=== PATIENT | female | born 1930 | race Caucasian/White ===

== ENCOUNTER 2016-12-12 15:59 | Inpatient (IN) | payer OTHER ==
--- NOTE | 2016-12-12 18:48 | PDOC ---
History of Present Illness - General History Source: Patient, Family (Daughter ) Exam Limitations: No Limitations - History of Present Illness Initial Comments: 12/12/16 19:27 The patient is an 86 year old female, with a significant past medical history of stage II breast CA and urinary incontinence, who presents to the emergency department with right lower extremity redness, swelling and pain for the past 3 days but worsening today. Three days ago, the patient states that she noticed her right lower extremity had started to become swollen. However, it was not until today that she noticed her right lower extremity had become red and inflamed. She called her daughter to bring her to her PCPs office, but she came to the ED for evaluation instead. The patient denies fever or chills. The patients daughter is at the bedside. Allergies: Sulfa. Past Surgical History: Cholecystectomy. Social History: Former smoker. Denies alcohol or drug use. PCP: Dr. Toro <Lizeth Elias - Last Filed: 12/12/16 22:31> <Tammy Ray - Last Filed: 12/13/16 01:49> - General Chief Complaint: Edema Stated Complaint: LEG PAIN Time Seen by Provider: 12/12/16 18:31 Past History <Lizeth Elias - Last Filed: 12/12/16 22:31> - Past Medical History Cancer: Yes (LT BREAST) Other medical history: URINARY INCONTENANCE - Surgical History Cholecystectomy: Yes - Psycho/Social/Smoking Cessation Hx Anxiety: No Suicidal Ideation: No Smoking History: Former smoker Have you smoked in the past 12 months: No Information on smoking cessation initiated: No Hx Alcohol Use: No Drug/Substance Use Hx: No Substance Use Type: None <Tammy Ray - Last Filed: 12/13/16 01:49> - Past Medical History Allergies/Adverse Reactions: Allergies Allergy/AdvReac Type Severity Reaction Status Date / Time Sulfa (Sulfonamide Allergy Verified 12/12/16 19:43 Antibiotics) Home Medications: Ambulatory Orders Aspirin 81 mg PO DAILY 06/17/15 B12/Levomefolate Calcium/B-6 [Folbic Rf Tablet] 1 each PO DAILY tablet Folic Acid 0.4 mg PO DAILY tablet 06/17/15 Furosemide 20 mg PO DAILY tablet 06/17/15 Meclizine HCl 25 mg PO Q6H PRN tablet 06/17/15 Multivit-Min/FA/Lycopen/Lutein [Centrum Silver Tablet] 1 tab PO DAILY tablet Omeprazole/Sodium Bicarbonate [Omeprazole-Bicarb 20-1,100 Cap] 1 each PO DAILY capsule 06/17/15 Mirabegron [Myrbetriq] 1 tab PO DAILY 12/12/16 Tolterodine Tartrate LA [Detrol LA -] 1 tab PO DAILY 12/12/16 Review of Systems - Review of Systems Able to Perform ROS?: Yes Comments:: 12/12/16 19:08 GENERAL/CONSTITUTIONAL: No fever or chills. No weakness. HEAD, EYES, EARS, NOSE AND THROAT: No change in vision. No ear pain or discharge. No sore throat. CARDIOVASCULAR: No chest pain or shortness of breath. RESPIRATORY: No cough, wheezing, or hemoptysis. GASTROINTESTINAL: No nausea, vomiting, diarrhea or constipation. GENITOURINARY: No dysuria, frequency, or change in urination. MUSCULOSKELETAL: No joint or muscle swelling or pain. No neck or back pain. EXTREMITY: +Right lower extremity redness, swelling and pain. SKIN: No rash. NEUROLOGIC: No headache, vertigo, loss of consciousness, or change in strength/ sensation. ENDOCRINE: No increased thirst. No abnormal weight change. HEMATOLOGIC/LYMPHATIC: No anemia, easy bleeding, or history of blood clots. ALLERGIC/IMMUNOLOGIC: No hives or skin allergy. <Lizeth Elias - Last Filed: 12/12/16 22:31> *Physical Exam - Vital Signs Last Vital Signs Temp Pulse Resp BP Pulse Ox 98.0 F 109 H 18 136/63 98 12/12/16 16:19 12/12/16 16:19 12/12/16 16:19 12/12/16 16:19 12/12/16 16:19 - Physical Exam Comments: 12/12/16 19:18 GENERAL: Awake, alert, and fully oriented, in no acute distress. HEAD: No signs of trauma. EYES: PERRLA, EOMI, sclera anicteric, conjunctiva clear. ENT: Hard of hearing. Auricles normal inspection, nares patent, oropharynx clear without exudates. Moist mucosa. NECK: Normal ROM, supple, no lymphadenopathy, JVD, or masses. LUNGS: Breath sounds equal, clear to auscultation bilaterally. No wheezes, and no crackles. HEART: Regular rate and rhythm, normal S1 and S2, no murmurs, rubs or gallops. ABDOMEN: Soft, nontender, normoactive bowel sounds. No guarding, no rebound. No masses. EXTREMITIES: 2+ pitting edema of the right lower extremity to the knee which is erythematous with multiple open lesions weeping clear fluid. Normal range of motion. No clubbing or cyanosis. No cords. NEUROLOGICAL: Cranial nerves II through XII intact. Normal speech, gait deferred. SKIN: Warm, dry, normal turgor. <Lizeth Elias - Last Filed: 12/12/16 22:31> - Vital Signs Last Vital Signs Temp Pulse Resp BP Pulse Ox 98.0 F 109 H 18 136/63 98 12/12/16 16:19 12/12/16 16:19 12/12/16 16:19 12/12/16 16:19 12/12/16 16:19 <Tammy Ray - Last Filed: 12/13/16 01:49> ED Treatment Course - LABORATORY CBC & Chemistry Diagram: 12/12/16 19:25 12/12/16 19:25 <Lizeth lEias - Last Filed: 12/12/16 22:31> - LABORATORY CBC & Chemistry Diagram: 12/12/16 19:25 12/12/16 21:30 <Tammy Ray - Last Filed: 12/13/16 01:49> Medical Decision Making - Medical Decision Making 12/12/16 20:09 EXAM: US/DUPLEX VASCUL US-1 LEG Reviewed By: Dr. Brian Mahmood IMPRESSION: No DVT is identified involving the right leg. Note is made of a prominent approximately 6.3 x 2.5 x 2 cm popliteal cyst. Case discussed with Dr. Tobar at 21:54. <Lizeth Elias - Last Filed: 12/12/16 22:31> - Medical Decision Making Case d/w Dr. Tobar, will admit for cellulitis RLE. DVT study is negative. I consulted with Dr. Chavis as per Dr. Tobar. <Tammy Ray - Last Filed: 12/13/16 01:49> *DC/Admit/Observation/Transfer - Attestations Scribe Attestion: 12/12/16 19:06 Documentation prepared by Lizeth Elias, acting as medical aide for Tammy Ray MD. <Lizeth Elias - Last Filed: 12/12/16 22:31> - Discharge Dispostion Admit: Yes <Tammy Ray - Last Filed: 12/13/16 01:49> Diagnosis at time of Disposition: Cellulitis Qualifiers: Site of cellulitis: extremity Site of cellulitis of extremity: lower extremity Laterality: right Qualified Code(s): L03.115 - Cellulitis of right lower limb - Discharge Dispostion Condition at time of disposition: Stable - Referrals
[2016-12-12] MEDS ORDERED: CLINDAMYCIN 600MG PREMIX IVPB 50 ML IVPB ONE ×2 (18:54→19:32)
[2016-12-12 19:38] LABS: MCH 33.2 pg (25.7-33.7); MCHC 33.1 g/dl (32.0-36.0); MEAN CELL VOLUME 100.2 fl (80-96); MEAN PLT VOLUME 8.3 fl (7.5-11.1); PLATELET COUNT 235 K/MM3 (134-434); RDW 16.2 % (11.6-15.6)
[2016-12-12 21:38] LABS: HYPOCHROMIA 1+; PLATELET ESTIMATE ADEQUATE (NORMAL)
[2016-12-12] MEDS: PIPERACILLIN/TAZOB 3.375 GM 3.375 GM in DEXTROSE 5%-WATER - 50 ML IVPB ONE ×2 (21:53→22:09)
[2016-12-12] MEDS ORDERED: PIPERACILLIN IVPB ONE (21:54)
[2016-12-12] MEDS ORDERED: TAZOB IVPB ONE (21:54)
--- NOTE | 2016-12-12 22:04 | CONSULT ---
Consult Consult Specialty:: infectious diseases Reason for Consultation:: cellulitis rt leg - History of Present Illness Chief Complaint: cellulitis of the leg History of Present Illness: 86 year old female, with a significant past medical history of stage II breast CA and urinary incontinence, who presents to the emergency department with right lower extremity redness, swelling and pain for the past 3 days but worsening today. Three days ago, the patient states that she noticed her right lower extremity had started to become swollen. However, it was not until today that she noticed her right lower extremity had become red and inflamed patient says she had to come to the hospital because he was bothering her - History Source History Provided By: Patient, Family Member Limitations to Obtaining History: No Limitations - Alcohol/Substance Use Hx Alcohol Use: No - Smoking History Smoking history: Former smoker Have you smoked in the past 12 months: No Home Medications - Allergies Allergies/Adverse Reactions: Allergies Allergy/AdvReac Type Severity Reaction Status Date / Time Sulfa (Sulfonamide Allergy Verified 12/12/16 19:43 Antibiotics) - Home Medications Home Medications: Ambulatory Orders Aspirin 81 mg PO DAILY 06/17/15 Folic Acid 0.4 mg PO DAILY tablet 06/17/15 Furosemide 20 mg PO DAILY tablet 06/17/15 Meclizine HCl 25 mg PO TID tablet 06/17/15 Tolterodine Tartrate LA [Detrol LA -] 4 mg PO DAILY 12/12/16 Cyanocobalamin [Vitamin B12 -] 1,000 mcg PO DAILY 12/13/16 Multivitamins [Tab-A-Vit -] 1 tab PO DAILY 12/13/16 Review of Systems - Review of Systems Constitutional: reports: No Symptoms Eyes: reports: No Symptoms HENT: reports: No Symptoms Neck: reports: No Symptoms Cardiovascular: reports: No Symptoms Respiratory: reports: No Symptoms Gastrointestinal: reports: No Symptoms Genitourinary: reports: No Symptoms Integumentary: reports: Erythema, Other Neurological: reports: No Symptoms, Weakness Hematology/Lymphatic: reports: No Symptoms Psychiatric: reports: No Symptoms Physical Exam Vital Signs: Vital Signs Temperature 98.0 F 12/12/16 16:19 Pulse Rate 109 H 12/12/16 16:19 Respiratory Rate 18 12/12/16 16:19 Blood Pressure 136/63 12/12/16 16:19 O2 Sat by Pulse Oximetry (%) 98 12/12/16 16:19 Constitutional: Yes: Calm, Mild Distress Eyes: Yes: Conjunctiva Clear HENT: Yes: Atraumatic Neck: Yes: Supple, Trachea Midline Cardiovascular: Yes: Regular Rate and Rhythm Respiratory: Yes: Regular, CTA Bilaterally Gastrointestinal: Yes: Normal Bowel Sounds, Soft Musculoskeletal: Yes: Muscle Pain, Other Extremities: Yes: Erythema (rt leg) Integumentary: Yes: Erythema, Other Neurological: Yes: Alert, Oriented Psychiatric: Yes: Alert, Oriented Labs: CBC, BMP 12/12/16 19:25 Imaging - Results Chest X-ray: Report Reviewed, Image Reviewed Ultrasound: Report Reviewed, Image Reviewed Assessment/Plan - Problems (1) Cellulitis Code(s): L03.90 - CELLULITIS, UNSPECIFIED Qualifiers: Site of cellulitis: extremity Site of cellulitis of extremity: lower extremity Laterality: right Qualified Code(s): L03.115 - Cellulitis of right lower limb plan will start patient on zosyn await for cx reports monitor redness if increases will add abx
[2016-12-12] MEDS ORDERED: PIPERACILLIN/TAZOB 4.5 GM 100 ML IVPB ONE (22:06)
[2016-12-12] MEDS ORDERED: PIPERACILLIN/TAZOB 3.375 GM 3.375 GM in DEXTROSE 5%-WATER - 50 ML IVPB SCH (22:15)
[2016-12-12 22:34] LABS: ALBUMIN 2.4 g/dl (3.4-5.0); BILIRUBIN,TOTAL 0.3 mg/dL (0.2-1.0); CALCIUM 8.1 mg/dL (8.5-10.1); COCKROFT - GAULT 51.5355; TOT PROT 5.9 g/dl (6.4-8.2)
--- NOTE | 2016-12-12 23:30 | HP ---
Admitting History and Physical - Primary Care Physician PCP: Marii Tobar - Admission History of Present Illness: 86 year old female, with a significant past medical history of stage II breast CA and urinary incontinence, who presents to the emergency department with right lower extremity redness, swelling and pain for the past 3 days but worsening today. Three days ago, the patient states that she noticed her right lower extremity had started to become swollen. However, it was not until today that she noticed her right lower extremity had become red and inflamed. She called her daughter to bring her to her PCPs office, but she came to the ED for evaluation instead. - Past Medical History Heme/Onc: Yes: Other (br ca) - Smoking History Smoking history: Former smoker Have you smoked in the past 12 months: No - Alcohol/Substance Use Hx Alcohol Use: No Home Medications - Allergies Allergies/Adverse Reactions: Allergies Allergy/AdvReac Type Severity Reaction Status Date / Time Sulfa (Sulfonamide Allergy Verified 12/12/16 19:43 Antibiotics) - Home Medications Home Medications: Ambulatory Orders Aspirin 81 mg PO DAILY 06/17/15 Folic Acid 0.4 mg PO DAILY tablet 06/17/15 Furosemide 20 mg PO DAILY tablet 06/17/15 Meclizine HCl 25 mg PO TID tablet 06/17/15 Tolterodine Tartrate LA [Detrol LA -] 4 mg PO DAILY 12/12/16 Cyanocobalamin [Vitamin B12 -] 1,000 mcg PO DAILY 12/13/16 Multivitamins [Tab-A-Vit -] 1 tab PO DAILY 12/13/16 Physical Examination Vital Signs: Vital Signs Temperature 98.0 F 12/12/16 16:19 Pulse Rate 109 H 12/12/16 16:19 Respiratory Rate 18 12/12/16 16:19 Blood Pressure 136/63 12/12/16 16:19 O2 Sat by Pulse Oximetry (%) 98 12/12/16 16:19 Constitutional: Yes: No Distress HENT: Yes: Atraumatic Neck: Yes: Supple Cardiovascular: Yes: Regular Rate and Rhythm Respiratory: Yes: CTA Bilaterally Gastrointestinal: Yes: Normal Bowel Sounds Extremities: Yes: Other (rlex swollen , red and warm) Neurological: Yes: Alert, Oriented Imaging - Results Ultrasound: Report Reviewed Problem List - Problems (1) Cellulitis Assessment/Plan: admit iv abx dvt negative prn pain meds Code(s): L03.90 - CELLULITIS, UNSPECIFIED Qualifiers: Site of cellulitis: extremity Site of cellulitis of extremity: lower extremity Laterality: right Qualified Code(s): L03.115 - Cellulitis of right lower limb Assessment/Plan Laboratory Tests 12/12/16 12/12/16 12/12/16 19:25 19:25 21:30 WBC 10.0 RBC 3.03 L Hgb 10.0 L Hct 30.3 L MCV 100.2 H MCHC 33.1 RDW 16.2 H Plt Count 235 MPV 8.3 Neutrophils % 78.0 Lymphocytes % 15.0 Monocytes % 7.0 Platelet Estimate Adequate Hypochromic-Microcytic 1+ Macrocytosis 1+ Sodium Cancelled 141 Potassium Cancelled 3.5 Chloride Cancelled 104 Carbon Dioxide Cancelled 26 Anion Gap Cancelled 11 BUN Cancelled 17 Creatinine Cancelled 1.0 Creat Clearance w eGFR Cancelled 52.69 Random Glucose Cancelled 121 H Calcium Cancelled 8.1 L Total Bilirubin Cancelled 0.3 AST Cancelled 21 ALT Cancelled 21 Alkaline Phosphatase Cancelled 151 H Total Protein Cancelled 5.9 L Albumin Cancelled 2.4 L Active Medications Generic Name Dose Route Start Last Admin Trade Name Freq PRN Reason Stop Dose Admin Aspirin 81 mg 12/13/16 10:00 Asa - PO DAILY [facility] Furosemide 20 mg 12/13/16 10:00 Lasix - PO DAILY [facility] Piperacillin Sod/Tazobactam Sod 50 mls @ 100 mls/hr 12/12/16 22:55 Zosyn 3.375gm Ivpb (Pre-Docked) IVPB Q8H-IV [facility] Protocol Tolterodine Tartrate mg 12/13/16 10:00 Detrol La - PO DAILY [facility]
[2016-12-13] MEDS ORDERED: PIPERACILLIN/TAZOB 3.375 GM 50 ML IVPB ONE (02:23)
[2016-12-13] MEDS: PIPERACILLIN/TAZOB 3.375 GM 50 ML IVPB SCH ×3 (03:05→21:19)
[2016-12-13 09:51] LABS: ALBUMIN 2.6 g/dl (3.4-5.0); BILIRUBIN,TOTAL 0.6 mg/dL (0.2-1.0); CALCIUM 8.6 mg/dL (8.5-10.1); COCKROFT - GAULT 51.5355; TOT PROT 6.5 g/dl (6.4-8.2)
[2016-12-13] MEDS: TOLTERODINE TARTRATE LA 4 MG CAP.SR.24H (FP) PO SCH (10:30)
[2016-12-13] MEDS: ASPIRIN 81 MG CHEWABLE TABLETS PO SCH (10:30)
[2016-12-13] MEDS: FUROSEMIDE 20 MG TABLET (FP) PO SCH (10:31)
[2016-12-13 12:11] LABS: EOSINOPHIL 0.1 % (0-4.5)
[2016-12-13 12:29] LABS: BASOPHIL 1.1 % (0-2.0); MCH 32.7 pg (25.7-33.7); MCHC 32.4 g/dl (32.0-36.0); MEAN PLT VOLUME 8.4 fl (7.5-11.1); NEUTROPHILS 77.9 % (42.8-82.8); PLATELET COUNT 243 K/MM3 (134-434); RDW 15.8 % (11.6-15.6); WHITE BLOOD COUNT 11.8 K/mm3 (4.0-10.0)
[2016-12-13 17:20] VITALS: BMI 29.7
--- NOTE | 2016-12-13 19:02 | PN ---
Progress Note, Physician History of Present Illness: no complaints - Current Medication List Current Medications: Active Medications Aspirin (Asa -) 81 mg PO DAILY [facility] Last Admin: 12/13/16 10:30 Dose: Not Given Furosemide (Lasix -) 20 mg PO DAILY [facility] Last Admin: 12/13/16 10:31 Dose: Not Given Piperacillin Sod/Tazobactam Sod (Zosyn 3.375gm Ivpb (Pre-Docked)) 50 mls @ 100 mls/hr IVPB Q8H-IV [facility] PRN Reason: Protocol Last Admin: 12/13/16 11:00 Dose: 100 mls/hr Tolterodine Tartrate (Detrol La -) 4 mg PO DAILY [facility] Last Admin: 12/13/16 10:30 Dose: Not Given - Objective Vital Signs: Vital Signs Temperature 98.1 F 12/13/16 15:19 Pulse Rate 99 H 12/13/16 15:19 Respiratory Rate 20 12/13/16 15:19 Blood Pressure 122/70 12/13/16 15:19 O2 Sat by Pulse Oximetry (%) 98 12/12/16 16:19 Constitutional: Yes: No Distress HENT: Yes: Atraumatic Neck: Yes: Supple Cardiovascular: Yes: Regular Rate and Rhythm Respiratory: Yes: CTA Bilaterally Gastrointestinal: Yes: Normal Bowel Sounds Extremities: Yes: Other (cellulitis) Edema: Yes Edema: RLE: 1+ Neurological: Yes: Alert, Oriented Labs: CBC, BMP 12/13/16 06:15 12/13/16 06:15 Problem List - Problems (1) Cellulitis Assessment/Plan: admit iv abx dvt negative prn pain meds Code(s): L03.90 - CELLULITIS, UNSPECIFIED Qualifiers: Site of cellulitis: extremity Site of cellulitis of extremity: lower extremity Laterality: right Qualified Code(s): L03.115 - Cellulitis of right lower limb
[2016-12-13] MEDS: FOLIC ACID 1 MG TABLET (FP) PO SCH (21:20)
[2016-12-13] MEDS: CYANOCOBALAMIN 1,000 MCG TABLET (FP) PO SCH (21:20)
--- NOTE | 2016-12-13 23:43 | PN ---
Progress Note, Physician History of Present Illness: patient swelling less erythema less still erythema - Current Medication List Current Medications: Active Medications Aspirin (Asa -) 81 mg PO DAILY [facility] Last Admin: 12/13/16 10:30 Dose: Not Given Cyanocobalamin (Vitamin B12 -) 1,000 mcg PO DAILY [facility] Last Admin: 12/13/16 21:20 Dose: 1,000 mcg Folic Acid (Folic Acid -) 0.5 mg PO DAILY [facility] Last Admin: 12/13/16 21:20 Dose: 0.5 mg Furosemide (Lasix -) 20 mg PO DAILY [facility] Last Admin: 12/13/16 10:31 Dose: Not Given Piperacillin Sod/Tazobactam Sod (Zosyn 3.375gm Ivpb (Pre-Docked)) 50 mls @ 100 mls/hr IVPB Q8H-IV [facility] PRN Reason: Protocol Last Admin: 12/13/16 21:19 Dose: 100 mls/hr Tolterodine Tartrate (Detrol La -) 4 mg PO DAILY [facility] Last Admin: 12/13/16 10:30 Dose: Not Given - Objective Vital Signs: Vital Signs Temperature 97.4 F L 12/13/16 16:20 Pulse Rate 95 H 12/13/16 16:20 Respiratory Rate 20 12/13/16 16:20 Blood Pressure 139/66 12/13/16 16:20 O2 Sat by Pulse Oximetry (%) 100 12/13/16 18:00 Constitutional: Yes: No Distress, Calm Cardiovascular: Yes: Regular Rate and Rhythm Respiratory: Yes: Regular, CTA Bilaterally Gastrointestinal: Yes: Normal Bowel Sounds, Soft Musculoskeletal: Yes: Other Extremities: Yes: Erythema (resolving) Edema: RLE: 1+ Integumentary: Yes: Erythema Neurological: Yes: Alert, Oriented Psychiatric: Yes: Alert Labs: CBC, BMP 12/13/16 06:15 12/13/16 06:15 Assessment/Plan - Problems (1) Cellulitis Code(s): L03.90 - CELLULITIS, UNSPECIFIED Qualifiers: Site of cellulitis: extremity Site of cellulitis of extremity: lower extremity Laterality: right Qualified Code(s): L03.115 - Cellulitis of right lower limb plan conitnue abx cx report noted elevation of legs monitor swelling
[2016-12-14] MEDS: PIPERACILLIN/TAZOB 3.375 GM 50 ML IVPB SCH ×3 (01:30→18:43)
[2016-12-14] MEDS: CYANOCOBALAMIN 1,000 MCG TABLET (FP) PO SCH (10:52)
[2016-12-14] MEDS: TOLTERODINE TARTRATE LA 4 MG CAP.SR.24H (FP) PO SCH (10:52)
[2016-12-14] MEDS: FUROSEMIDE 20 MG TABLET (FP) PO SCH (10:53)
[2016-12-14] MEDS: ASPIRIN 81 MG CHEWABLE TABLETS PO SCH (10:53)
[2016-12-14] MEDS: FOLIC ACID 1 MG TABLET (FP) PO SCH (10:53)
--- NOTE | 2016-12-14 12:45 | PN ---
Progress Note, Physician History of Present Illness: swelling and erythema still present slightly less still ongoing though patient feeling better - Current Medication List Current Medications: Active Medications Aspirin (Asa -) 81 mg PO DAILY [facility] Last Admin: 12/14/16 10:53 Dose: 81 mg Cyanocobalamin (Vitamin B12 -) 1,000 mcg PO DAILY [facility] Last Admin: 12/14/16 10:52 Dose: 1,000 mcg Folic Acid (Folic Acid -) 0.5 mg PO DAILY [facility] Last Admin: 12/14/16 10:53 Dose: 0.5 mg Furosemide (Lasix -) 20 mg PO DAILY [facility] Last Admin: 12/14/16 10:53 Dose: 20 mg Piperacillin Sod/Tazobactam Sod (Zosyn 3.375gm Ivpb (Pre-Docked)) 50 mls @ 100 mls/hr IVPB Q8H-IV [facility] PRN Reason: Protocol Last Admin: 12/14/16 10:53 Dose: 100 mls/hr Tolterodine Tartrate (Detrol La -) 4 mg PO DAILY [facility] Last Admin: 12/14/16 10:52 Dose: 4 mg - Objective Vital Signs: Vital Signs Temperature 98.4 F 12/14/16 06:22 Pulse Rate 98 H 12/14/16 06:22 Respiratory Rate 20 12/14/16 06:22 Blood Pressure 132/79 12/14/16 06:22 O2 Sat by Pulse Oximetry (%) 95 12/13/16 21:00 Constitutional: Yes: No Distress, Calm Cardiovascular: Yes: Regular Rate and Rhythm Respiratory: Yes: Regular, CTA Bilaterally Gastrointestinal: Yes: Normal Bowel Sounds, Soft Musculoskeletal: Yes: WNL Extremities: Yes: Erythema (better) Integumentary: Yes: Erythema (improving) Neurological: Yes: Alert, Oriented Psychiatric: Yes: Alert Labs: CBC, BMP 12/13/16 06:15 12/13/16 06:15 Assessment/Plan - Problems (1) Cellulitis Code(s): L03.90 - CELLULITIS, UNSPECIFIED Qualifiers: Site of cellulitis: extremity Site of cellulitis of extremity: lower extremity Laterality: right Qualified Code(s): L03.115 - Cellulitis of right lower limb plan conitnue abx elevation of legs if no improveemnt tomorrow will add clinda
--- NOTE | 2016-12-14 19:28 | PN ---
Progress Note, Physician History of Present Illness: no complaints - Current Medication List Current Medications: Active Medications Aspirin (Asa -) 81 mg PO DAILY [facility] Last Admin: 12/14/16 10:53 Dose: 81 mg Cyanocobalamin (Vitamin B12 -) 1,000 mcg PO DAILY [facility] Last Admin: 12/14/16 10:52 Dose: 1,000 mcg Folic Acid (Folic Acid -) 0.5 mg PO DAILY [facility] Last Admin: 12/14/16 10:53 Dose: 0.5 mg Furosemide (Lasix -) 20 mg PO DAILY [facility] Last Admin: 12/14/16 10:53 Dose: 20 mg Piperacillin Sod/Tazobactam Sod (Zosyn 3.375gm Ivpb (Pre-Docked)) 50 mls @ 100 mls/hr IVPB Q8H-IV [facility] PRN Reason: Protocol Last Admin: 12/14/16 18:43 Dose: 100 mls/hr Tolterodine Tartrate (Detrol La -) 4 mg PO DAILY [facility] Last Admin: 12/14/16 10:52 Dose: 4 mg - Objective Vital Signs: Vital Signs Temperature 97.9 F 12/14/16 14:40 Pulse Rate 78 12/14/16 14:40 Respiratory Rate 16 12/14/16 14:40 Blood Pressure 130/78 12/14/16 14:40 O2 Sat by Pulse Oximetry (%) 95 12/13/16 21:00 Constitutional: Yes: No Distress HENT: Yes: Atraumatic Neck: Yes: Supple Cardiovascular: Yes: Regular Rate and Rhythm Respiratory: Yes: CTA Bilaterally Gastrointestinal: Yes: Normal Bowel Sounds Extremities: Yes: Other (rlex cellulitis improving) Neurological: Yes: Alert, Oriented Labs: CBC, BMP 12/13/16 06:15 12/13/16 06:15 Problem List - Problems (1) Cellulitis Assessment/Plan: admit iv abx dvt negative prn pain meds NEED TO KNOW FROM ID IF WE CAN SWITCH HER TO ORAL AND DC HER Code(s): L03.90 - CELLULITIS, UNSPECIFIED Qualifiers: Site of cellulitis: extremity Site of cellulitis of extremity: lower extremity Laterality: right Qualified Code(s): L03.115 - Cellulitis of right lower limb
[2016-12-15] MEDS: PIPERACILLIN/TAZOB 3.375 GM 50 ML IVPB SCH ×3 (01:30→17:46)
[2016-12-15] MEDS: CYANOCOBALAMIN 1,000 MCG TABLET (FP) PO SCH (09:38)
[2016-12-15] MEDS: FOLIC ACID 1 MG TABLET (FP) PO SCH (09:39)
[2016-12-15] MEDS: ASPIRIN 81 MG CHEWABLE TABLETS PO SCH (09:39)
[2016-12-15] MEDS: TOLTERODINE TARTRATE LA 4 MG CAP.SR.24H (FP) PO SCH (09:39)
[2016-12-15] MEDS: FUROSEMIDE 20 MG TABLET (FP) PO SCH (09:39)
--- NOTE | 2016-12-15 13:29 | PN ---
Progress Note, Physician History of Present Illness: patient stable leg still red but improving - Current Medication List Current Medications: Active Medications Aspirin (Asa -) 81 mg PO DAILY [facility] Last Admin: 12/15/16 09:39 Dose: 81 mg Cyanocobalamin (Vitamin B12 -) 1,000 mcg PO DAILY [facility] Last Admin: 12/15/16 09:38 Dose: 1,000 mcg Folic Acid (Folic Acid -) 0.5 mg PO DAILY [facility] Last Admin: 12/15/16 09:39 Dose: 0.5 mg Furosemide (Lasix -) 20 mg PO DAILY [facility] Last Admin: 12/15/16 09:39 Dose: 20 mg Piperacillin Sod/Tazobactam Sod (Zosyn 3.375gm Ivpb (Pre-Docked)) 50 mls @ 100 mls/hr IVPB Q8H-IV [facility] PRN Reason: Protocol Last Admin: 12/15/16 09:47 Dose: 100 mls/hr Tolterodine Tartrate (Detrol La -) 4 mg PO DAILY [facility] Last Admin: 12/15/16 09:39 Dose: 4 mg - Objective Vital Signs: Vital Signs Temperature 97.7 F 12/15/16 08:41 Pulse Rate 86 12/15/16 08:41 Respiratory Rate 16 12/15/16 08:41 Blood Pressure 137/76 12/15/16 08:41 O2 Sat by Pulse Oximetry (%) 97 12/14/16 21:00 Constitutional: Yes: No Distress, Calm Cardiovascular: Yes: Regular Rate and Rhythm Respiratory: Yes: Regular, CTA Bilaterally Gastrointestinal: Yes: Normal Bowel Sounds, Soft Musculoskeletal: Yes: Other Extremities: Yes: Erythema Integumentary: Yes: Erythema Wound/Incision: Yes: Clean/Dry Neurological: Yes: Alert, Oriented Psychiatric: Yes: Alert, Oriented Labs: CBC, BMP 12/13/16 06:15 12/13/16 06:15 Assessment/Plan - Problems (1) Cellulitis Code(s): L03.90 - CELLULITIS, UNSPECIFIED Qualifiers: Site of cellulitis: extremity Site of cellulitis of extremity: lower extremity Laterality: right Qualified Code(s): L03.115 - Cellulitis of right lower limb plan conitnue abx elevation of legs will add oral clinda rest ct as per primary
[2016-12-15] MEDS: CLINDAMYCIN HCL 150 MG CAPSULE (FP) PO SCH (17:46)
--- NOTE | 2016-12-15 18:23 | PN ---
Progress Note, Physician History of Present Illness: no complaints - Current Medication List Current Medications: Active Medications Aspirin (Asa -) 81 mg PO DAILY [facility] Last Admin: 12/15/16 09:39 Dose: 81 mg Clindamycin HCl (Cleocin -) 300 mg PO Q6HPO [facility] Last Admin: 12/15/16 17:46 Dose: 300 mg Cyanocobalamin (Vitamin B12 -) 1,000 mcg PO DAILY [facility] Last Admin: 12/15/16 09:38 Dose: 1,000 mcg Folic Acid (Folic Acid -) 0.5 mg PO DAILY [facility] Last Admin: 12/15/16 09:39 Dose: 0.5 mg Furosemide (Lasix -) 20 mg PO DAILY [facility] Last Admin: 12/15/16 09:39 Dose: 20 mg Piperacillin Sod/Tazobactam Sod (Zosyn 3.375gm Ivpb (Pre-Docked)) 50 mls @ 100 mls/hr IVPB Q8H-IV [facility] PRN Reason: Protocol Last Admin: 12/15/16 17:46 Dose: 100 mls/hr Meclizine HCl (Antivert -) 25 mg PO TID PRN PRN Reason: VERTIGO Tolterodine Tartrate (Detrol La -) 4 mg PO DAILY [facility] Last Admin: 12/15/16 09:39 Dose: 4 mg - Objective Vital Signs: Vital Signs Temperature 97.9 F 12/15/16 17:32 Pulse Rate 90 12/15/16 17:32 Respiratory Rate 18 12/15/16 17:32 Blood Pressure 131/68 12/15/16 17:32 O2 Sat by Pulse Oximetry (%) 98 12/15/16 09:00 Constitutional: Yes: No Distress HENT: Yes: Atraumatic Neck: Yes: Supple Respiratory: Yes: CTA Bilaterally Gastrointestinal: Yes: Normal Bowel Sounds Extremities: Yes: Other (R davonte cellulitis improving) Edema: LLE: Trace, RLE: 1+ Neurological: Yes: Alert, Oriented Labs: CBC, BMP 12/13/16 06:15 12/13/16 06:15 Problem List - Problems (1) Cellulitis Assessment/Plan: admit iv abx canbe dc tomorrow after 2 dose of iv abx dc on po abx for 1 week Code(s): L03.90 - CELLULITIS, UNSPECIFIED Qualifiers: Site of cellulitis: extremity Site of cellulitis of extremity: lower extremity Laterality: right Qualified Code(s): L03.115 - Cellulitis of right lower limb
[2016-12-15] MEDS: ACETAMINOPHEN 325 MG TABLET (FP) PO PRN (21:33)
[2016-12-15] MEDS: MECLIZINE HCL 25 MG TABLET (FP) PO PRN (21:33)
[2016-12-16] MEDS: PIPERACILLIN/TAZOB 3.375 GM 50 ML IVPB SCH ×2 (02:06→09:20)
[2016-12-16] MEDS: CLINDAMYCIN HCL 150 MG CAPSULE (FP) PO SCH ×3 (06:17→11:33)
[2016-12-16] MEDS: FOLIC ACID 1 MG TABLET (FP) PO SCH (09:19)
[2016-12-16] MEDS: ASPIRIN 81 MG CHEWABLE TABLETS PO SCH (09:19)
[2016-12-16] MEDS: TOLTERODINE TARTRATE LA 4 MG CAP.SR.24H (FP) PO SCH (09:20)
[2016-12-16] MEDS: CYANOCOBALAMIN 1,000 MCG TABLET (FP) PO SCH (09:20)
[2016-12-16] MEDS: FUROSEMIDE 20 MG TABLET (FP) PO SCH (09:20)
[2016-12-16] MEDS ORDERED: PT OWN MED DRAWER 7, Y5N ONE ×2 (09:27→16:08)
[2016-12-16] MEDS: MECLIZINE HCL 25 MG TABLET (FP) PO PRN ×2 (09:28→16:09)
--- NOTE | 2016-12-16 10:22 | PN ---
Progress Note, Physician History of Present Illness: patient doing well no issues working with physio leg improved - Current Medication List Current Medications: Active Medications Acetaminophen (Tylenol -) 650 mg PO Q6H PRN PRN Reason: FEVER OR PAIN Last Admin: 12/15/16 21:33 Dose: 650 mg Aspirin (Asa -) 81 mg PO DAILY PENDING SALE TO [facility] Last Admin: 12/16/16 09:19 Dose: 81 mg Clindamycin HCl (Cleocin -) 300 mg PO Q6HPO PENDING SALE TO [facility] Last Admin: 12/16/16 06:17 Dose: 300 mg Cyanocobalamin (Vitamin B12 -) 1,000 mcg PO DAILY PENDING SALE TO [facility] Last Admin: 12/16/16 09:20 Dose: 1,000 mcg Folic Acid (Folic Acid -) 0.5 mg PO DAILY PENDING SALE TO [facility] Last Admin: 12/16/16 09:19 Dose: 0.5 mg Furosemide (Lasix -) 20 mg PO DAILY PENDING SALE TO [facility] Last Admin: 12/16/16 09:20 Dose: 20 mg Piperacillin Sod/Tazobactam Sod (Zosyn 3.375gm Ivpb (Pre-Docked)) 50 mls @ 100 mls/hr IVPB Q8H-IV JUDITH PRN Reason: Protocol Last Admin: 12/16/16 09:20 Dose: 100 mls/hr Meclizine HCl (Antivert -) 25 mg PO TID PRN PRN Reason: VERTIGO Last Admin: 12/16/16 09:28 Dose: 25 mg Tolterodine Tartrate (Detrol La -) 4 mg PO DAILY PENDING SALE TO [facility] Last Admin: 12/16/16 09:20 Dose: 4 mg - Objective Vital Signs: Vital Signs Temperature 97.9 F 12/16/16 06:00 Pulse Rate 94 H 12/16/16 06:00 Respiratory Rate 18 12/16/16 06:00 Blood Pressure 139/73 12/16/16 06:00 O2 Sat by Pulse Oximetry (%) 98 12/15/16 21:00 Constitutional: Yes: No Distress, Calm Cardiovascular: Yes: Regular Rate and Rhythm Respiratory: Yes: Regular, CTA Bilaterally Gastrointestinal: Yes: Normal Bowel Sounds, Soft Musculoskeletal: Yes: Other Extremities: Yes: Erythema (improved), Other Integumentary: Yes: Erythema (improved) Neurological: Yes: Alert, Oriented Psychiatric: Yes: Alert, Oriented Labs: CBC, BMP 12/13/16 06:15 12/13/16 06:15 Assessment/Plan - Problems (1) Cellulitis Code(s): L03.90 - CELLULITIS, UNSPECIFIED Qualifiers: Site of cellulitis: extremity Site of cellulitis of extremity: lower extremity Laterality: right Qualified Code(s): L03.115 - Cellulitis of right lower limb plan can change abx to oral clinda 300 mg every 8 hourly augmentin 875 mg twice a day both to be given for another 5 days
[2016-12-16] MEDS: ACETAMINOPHEN 325 MG TABLET (FP) PO PRN (11:31)
[2016-12-16 14:51] VITALS: BP 111/54; PULSE 88; TEMP 98.6
[2016-12-16] MEDS ORDERED: PIPERACILLIN/TAZOB 3.375 GM/50 ML PRE-DOCKED IVPB ONE (15:00)
--- NOTE | 2016-12-16 19:51 | DS ---
Physical Examination Vital Signs: Vital Signs Temperature 98.6 F 12/16/16 14:48 Pulse Rate 88 12/16/16 14:48 Respiratory Rate 16 12/16/16 14:48 Blood Pressure 111/54 12/16/16 14:48 O2 Sat by Pulse Oximetry (%) 98 12/16/16 09:00 Labs: CBC, BMP 12/13/16 06:15 12/13/16 06:15 Discharge Summary Reason For Visit: CELLULITIS Condition: Stable - Instructions Diet, Activity, Other Instructions: Low Fat, low Cholesterol, low sodium diet Keep right leg elevated when sitting, report any increased pain, redness, swelling, or temp 101 or over to MD Take all antibiotics as ordered. Referrals: Deng Toro [Primary Care Provider] - Disposition: HOME - Home Medications Comprehensive Discharge Medication List: Ambulatory Orders Aspirin 81 mg PO DAILY 06/17/15 Folic Acid 0.4 mg PO DAILY tablet 06/17/15 Furosemide 20 mg PO DAILY tablet 06/17/15 Meclizine HCl 25 mg PO TID tablet 06/17/15 Tolterodine Tartrate LA [Detrol LA -] 4 mg PO DAILY 12/12/16 Cyanocobalamin [Vitamin B12 -] 1,000 mcg PO DAILY 12/13/16 Multivitamins [Multivit ([facility])] 1 tab PO DAILY 12/13/16 Amoxicillin/Potassium Clav [Augmentin 875-125 Tablet] 1 each PO BID #14 tablet 12/15/16 Clindamycin [Cleocin -] 300 mg PO Q6HPO #28 capsule 12/15/16 [facility]
== END 2016-12-16 16:55 | disposition home or self-care (01) | DRG 603 ==
LOC: JER 15:59 → JERBED 21:56 → J8W 12-13 16:34
PROVIDERS: ADMIT Internal Medicine; ATTEND Internal Medicine
DX: L03.115 Cellulitis of right lower limb (principal); C50.919 Malignant neoplasm of unspecified site of unspecified female breast; Z87.891 Personal history of nicotine dependence
CPT/HCPCS: 36415; 80053; 85025; 87040; 93971-TC; 97116-GP; 97161-GP; 99284-25